=== PATIENT | female | born 1980 | race Two or more races ===

== ENCOUNTER 2020-11-13 11:43 | Emergency (ER) | payer OTHER ==
[~2020-11-13] VITALS: Ht 172.7 cm; Wt 72.6 kg
== END 2020-11-13 14:35 | disposition home or self-care (01) ==
LOC: ER 11:43
DX: H05.223 Edema of bilateral orbit (principal); T78.1XXA Other adverse food reactions, not elsewhere classified, initial encounter; X58.XXXA Exposure to other specified factors, initial encounter